=== PATIENT | female | born 1960 | race Caucasian/White ===

== ENCOUNTER → 2020-06-01 | Outpatient (CLI) | payer BC ==
--- NOTE | 2020-06-01 15:30 | CARD ---
MR#: [id number] Date of Study: 06/01/2020 Ordering Physician: SYLVIA BOONE, Referring Physician: SYLVIA BOONE, Tech: Debi Herrera [place] APPROVED REPORT EXAM: Two-dimensional and M-mode echocardiogram with Doppler and color Doppler. Other Information Quality : Good INDICATION Coronary Atherosclerosis 2D DIMENSIONS RVDd3.7 (2.9-3.5cm)Left Atrium(2D)4.3 (1.6-4.0cm) IVSd1.0 (0.7-1.1cm)Aortic Root(2D)2.6 (2.0-3.7cm) LVDd3.7 (3.9-5.9cm)LVOT Diameter2.2 (1.8-2.4cm) PWd0.8 (0.7-1.1cm)LVDs2.3 (2.5-4.0cm) FS (%) 38.4 %SV40.1 ml LVEF(%)60.0 (>50%) Aortic Valve AoV Peak Christos.126.1cm/sAoV VTI25.9cm AO Peak GR.6.4mmHgLVOT Peak Christos.117.9cm/s LVOT VTI 24.02cmAO Mean GR.3mmHg KARLA (VMAX)3.38iy1BLE (VTI)3.38cm2 Mitral Valve MV E Ncwtvtqw522.0cm/sMV DECEL ZFVD556lx MV A Mbgjuelz28.9cm/sE/A Ratio1.5 Tricuspid Valve TR P. Pbyszxdm828kq/sRAP YCZZNLYK2ooTi TR Peak Gr.09cnKrWJSX52mjYp Pulmonary Vein S1 Gagnuzfs49.4cm/sD2 Dnfcwmsr12.8cm/s LEFT VENTRICLE The left ventricle is normal size. There is normal left ventricular wall thickness. The left ventricu lar systolic function is normal and the ejection fraction is within normal range. The Ejection Fracti on is 55-60%. There is normal LV segmental wall motion. The left ventricular diastolic function and f illing is normal for age. No left ventricle thrombus noted on this study. RIGHT VENTRICLE The right ventricle is normal size. The right ventricular systolic function is normal. ATRIA The left atrium is mildly dilated. The right atrium size is normal. The interatrial septum is intact with no evidence for an atrial septal defect or patent foramen ovale as noted on 2-D or Doppler imagi ng. AORTIC VALVE The aortic valve is normal in structure and function. Doppler and Color Flow revealed no significant aortic regurgitation. There is no significant aortic valvular stenosis. MITRAL VALVE The mitral valve is calcified but opens well. There is no evidence of mitral valve prolapse. There is no mitral valve stenosis. Doppler and Color Flow revealed no mitral valve regurgitation noted. TRICUSPID VALVE The tricuspid valve is normal in structure and function. Doppler and Color Flow revealed trace tricus pid regurgitation. The PA pressure was estimated at 31 mmHg. There is no tricuspid valve stenosis. PULMONIC VALVE The pulmonic valve is not well visualized. Doppler and Color Flow revealed trace to mild pulmonic kit vular regurgitation. There is no pulmonic valvular stenosis. GREAT VESSELS The aortic root is normal in size. The ascending aorta is normal in size. The IVC is normal in size a nd collapses >50% with inspiration. PERICARDIAL EFFUSION There is no evidence of significant pericardial effusion. Critical Notification Critical Value: No <Conclusion> The left ventricular systolic function is normal and the ejection fraction is within normal range. Th e Ejection Fraction is 55-60%. There is normal LV segmental wall motion. Signed by : Sylvia Boone, Electronically Approved : 06/01/2020 15:29:44
== END | disposition home or self-care (01) ==
LOC: ECHO 14:39
PROVIDERS: ATTEND Internal Medicine Cardiovascular Disease
DX: I08.8 Other rheumatic multiple valve diseases (principal); I25.10 Atherosclerotic heart disease of native coronary artery without angina pectoris
CPT/HCPCS: 93306

== ENCOUNTER → 2021-05-12 | Outpatient (CLI) | payer BC ==
[~2021-05-12] MED LIST: REGADENOSON 0.4 MG/5 ML DISP.SYRIN. IV ONE
--- NOTE | 2021-05-12 12:44 | RAD ---
MR#: [id number] Date of Study: 05/12/2021 Ordering Physician: SYLVIA BOONE, Referring Physician: NOEL NGO Tech: ESTEVAN Melgar APPROVED REPORT Test Type: Pharmacological Stress Nurse/Tech: ESTEVAN Melgar Test Indications: CAD Cardiac History: cath with 50% blockage - no stents Medications: See EHR Medical History: See EHR Resting ECG: SR Resting Heart Rate: 55 bpm Resting Blood Pressure: 148/68mmHg Pretest Chest Pain: None Nurse/Tech Notes Consent: The procedure was explained to the patient in lay terms. Informed consent was witnessed. Dominguez eout was entered into [email or web address]. History and Stress Test performed by ESTEVAN Melgar Pharm. Details Pharmacologic stress testing was performed using 0.4mg per 5ml of regadenoson given intravenously ove r 7-10 seconds. POST EXERCISE Reason for Termination: Infusion complete Max HR: 99 bpm Max Blood Pressure: 143/62mmHg Blood Pressure response to exercise: Normal blood pressure response during stress. Chest Pain: No. INTERPRETATION Stress EKG Conclusion: The resting EKG shows a sinus rhythm. The stress EKG shows no significant changes from baseline. No EKG evidence of stress-induced ischemia. Imaging Protocol IMAGE PROTOCOL: Rest Tc-99m/stress Tc-99m 1 day Rest: Stress: Viability: Radiopharm.Tc99m YgobkbznjFb89n Sestamibi Rrov99iId 32mCi Duration 15min. 10min. Img Date 05/12/2021 05/12/2021 Inj-Img Gcgn64vxx. 60min. Rest Admin Site:IV - Right AntecubitalAdministrator: ESTEVAN Melgar Stress Admin Site: IV - Right AntecubitalAdministrator: ESTEVAN Melgar STRESS DATA End Diast. Vol.57.0mlAv. Heart Rate72.0bpm End Syst. Vol.4.0mlCO Index BSA3.8L/min Myocardial Vqol989.0gEject. Lcquigdg74.0% Stress Rates Pk. Fill Rate3.52EDV/secLVtime Pk. Fill 191.75msec Pk. Empty Rate4.51ESV/secLVtime Pk. Gelqs117.18msec 1/3 Pk. Fill1.13EDV/sec Stress Scores Regional WT0.00Summed WT0.00 Regional WM0.00Summed WM0.00 LV Perfusion The stress images show slight apical thinning. The rest images show slight apical thinning. Nuclear imaging shows a fixed mild apical thinning that is not diagnostic of an infarct or reversible ischemia. Wall Motion Left ventricular systolic function is normal with an ejection fraction of greater than 70%. LV Perf. Quant 17 Seg. SSS7.00 17 Seg. SRS4.00 17 Seg. SDS3.00 Stress Defect Extent (% LAD)1.90Rest Defect Extent (% LAD)5.00Rev. Defect Extent (% LAD)1.30 Stress Defect Extent (% LCX) 26.30Rest Defect Extent (% LCX)5.00Rev. Defect Extent (% LCX)17.50 Stress Defect Extent (% RCA)0.00Rest Defect Extent (% RCA)0.00Rev. Defect Extent (% RCA)0.00 Stress Defect Extent (% JENY)9.80Rest Defect Extent (% JENY)2.60Rev. Defect Extent (% JENY)7.20 Conclusion 1. No EKG evidence of stress-induced ischemia. 2. Nuclear imaging shows slight fixed apical thinning that is not diagnostic of an infarct or reversi ble ischemia. 3. Normal left ventricular systolic function with an ejection fraction of greater than 70%. 4. Moderately low risk Lexiscan nuclear stress test. Signed by : Ghulam Kahn MD Electronically Approved : 05/12/2021 12:43:52
== END ==
LOC: NM 07:42
PROVIDERS: ATTEND Internal Medicine Cardiovascular Disease
DX: R07.9 Chest pain, unspecified (principal)
CPT/HCPCS: 78452; 93017; A9500; J2785

== ENCOUNTER → 2021-05-17 | Outpatient (CLI) | payer BC ==
--- NOTE | 2021-05-17 16:09 | CARD ---
MR#: [id number] Date of Study: 05/17/2021 Ordering Physician: SYLVIA BREEN, Referring Physician: SYLVIA BREEN, Tech: Pebbles Brian, [facility] APPROVED REPORT EXAM: Two-dimensional and M-mode echocardiogram with Doppler and color Doppler. Other Information Quality : AverageHR: 58bpm INDICATION Chest Pain RISK FACTORS Hyperlipidemia 2D DIMENSIONS RVDd3.9 (2.9-3.5cm)Left Atrium(2D)3.3 (1.6-4.0cm) IVSd0.8 (0.7-1.1cm)Aortic Root(2D)2.9 (2.0-3.7cm) LVDd4.3 (3.9-5.9cm)LVOT Diameter2.0 (1.8-2.4cm) PWd0.9 (0.7-1.1cm)LVDs2.6 (2.5-4.0cm) FS (%) 39.9 %SV58.7 ml LVEF(%)70.8 (>50%) Aortic Valve AoV Peak Christos.126.9cm/sAoV VTI29.8cm AO Peak GR.6.4mmHgLVOT Peak Christos.95.3cm/s LVOT VTI 21.15cmAO Mean GR.4mmHg KARLA (VMAX)2.55gp9ZQO (VTI)2.30cm2 Mitral Valve MV E Vkqgeqzp812.0cm/sMV E Peak Gr.5mmHg MV DECEL [id number] A Gwsdhucb73.6cm/s MV E Mean Gr.2mmHgE/A Ratio1.4 Pulmonary Valve PV Peak Hhoogkbu08.1cm/sPV Peak Grad.3mmHg Tricuspid Valve TR P. Fbxseuvc288ya/sRAP NTDPEERZ6wpUq TR Peak Gr.33rbJrPENO73acDs Pulmonary Vein S1 Uckyyklt18.0cm/sD2 Hixanird36.3cm/s LEFT VENTRICLE The left ventricle is normal size. There is normal left ventricular wall thickness. The left ventricu lar systolic function is normal and the ejection fraction is within normal range. The Ejection Fracti on is 50-55%. There is normal LV segmental wall motion. Transmitral Doppler flow pattern is Grade II- pseudonormal filling dynamics. RIGHT VENTRICLE The right ventricle is mildly dilated. There is normal right ventricular wall thickness. The right ve ntricular systolic function is normal. ATRIA The left atrium size is normal. The right atrium is mildly dilated. The interatrial septum is intact with no evidence for an atrial septal defect or patent foramen ovale as noted on 2-D or Doppler imagi ng. AORTIC VALVE The aortic valve is thickened but opens well. Doppler and Color Flow revealed no significant aortic r egurgitation. There is no significant aortic valvular stenosis. Calculated aortic valve area is 2.9 c m2 with maximum pressure gradient of 7 mmHg and mean pressure gradient of 4 mmHg. MITRAL VALVE The mitral valve is normal in structure and function. There is no evidence of mitral valve prolapse. There is no mitral valve stenosis. Doppler and Color-flow revealed trace mitral regurgitation. TRICUSPID VALVE The tricuspid valve is normal in structure and function. Doppler and Color Flow revealed trace tricus pid regurgitation with an estimated PAP of 32 mmHg. There is no tricuspid valve stenosis. PULMONIC VALVE Doppler and Color Flow revealed trace to mild pulmonic valvular regurgitation. There is no pulmonic v alvular stenosis. GREAT VESSELS The aortic root is normal in size. The ascending aorta is normal in size. The IVC is normal in size a nd collapses >50% with inspiration. PERICARDIAL EFFUSION There is no evidence of significant pericardial effusion. Critical Notification Critical Value: No <Conclusion> The left ventricular systolic function is normal and the ejection fraction is within normal range. Th e Ejection Fraction is 50-55%. There is normal LV segmental wall motion. The right ventricle is mildly dilated. Signed by : Sylvia Breen, Electronically Approved : 05/17/2021 16:08:35
== END ==
LOC: ECHO 13:15
PROVIDERS: ATTEND Internal Medicine Cardiovascular Disease
DX: I37.1 Nonrheumatic pulmonary valve insufficiency (principal); I51.7 Cardiomegaly
CPT/HCPCS: 93306